=== PATIENT | female | born 1945 | race Caucasian/White ===

== ENCOUNTER → 2021-04-22 | Outpatient (CLI) | payer BC, MEDICARE | LOC: M.MRI 13:17 | PROVIDERS: ATTEND Orthopaedic Surgery | DX: Z01.818 Encounter for other preprocedural examination (principal); S83.522A Sprain of posterior cruciate ligament of left knee, initial encounter; S83.512A Sprain of anterior cruciate ligament of left knee, initial encounter; M17.12 Unilateral primary osteoarthritis, left knee; M25.462 Effusion, left knee; X58.XXXA Exposure to other specified factors, initial encounter; Y93.89 Activity, other specified; Y92.89 Other specified places as the place of occurrence of the external cause; Y99.8 Other external cause status ==

== ENCOUNTER → 2021-05-07 | Outpatient (CLI) | payer BC, MEDICARE ==
[~2021-05-07] MED LIST: CELEBREX 200 M200 M1 PO; CRESTOR40 MG PO; DITROPAN XL10 M1 PO; HYDROCHLOROTHIA25 M1 PO; LOVENOX40 MG/0.4 SUBQ; MULTI VITAMIN1 EACH PO; PRINIVIL40 MG PO; VITAMIN B-1100 M2 PO; VITAMIN D350 MC3 PO; ZETIA10 MG PO
[2021-05-07 09:05] LABS: ABSOLUTE BASOPHILS 0.1 thou/uL (0.0-0.2); ABSOLUTE EOSINOPHILS 0.2 thou/uL (0.0-0.7); ABSOLUTE LYMPHOCYTES 2.6 thou/uL (0.8-5.3); ABSOLUTE MONOCYTES 0.6 thou/uL (0.0-1.2); ABSOLUTE NEUTROPHILS 4.2 thou/uL (1.6-8.1); BASOPHILS 0.7 %; EOSINOPHILS 3.1 %; HEMATOCRIT 41.4 % (37.0-47.0); HEMOGLOBIN 14.1 gm/dL (12.0-15.0); LYMPHOCYTES 34.4 %; MCH 33.1 pg (26.0-34.0); MCHC 34.1 g/dL (28.0-37.0); MCV 97.2 fL (80.0-100.0); MONOCYTES 7.3 %; MPV 8.2 fl. (7.2-11.1); NUCLEATED RBCS 0 /100WBC; PLATELET COUNT* 233 thou/uL (150-400); POLYS 54.5 %; RBC 4.26 mil/uL (4.20-5.00); RDW-CV 12.6 % (10.5-14.5); WBC 7.7 thou/uL (4.0-11.0)
[2021-05-07 09:16] LABS: PROTIME 10.4 Seconds (9.20-11.50)
[2021-05-07 09:17] LABS: CALCIUM 9.3 mg/dL (8.5-10.1); TOTAL BILIRUBIN 0.6 mg/dL (<0.1-1.0); TOTAL PROTEIN 7.6 g/dL (6.4-8.2)
[2021-05-07 10:07] LABS: URINE BILIRUBIN NEGATIVE (Negative); URINE BLOOD NEGATIVE (Negative); URINE CLARITY CLEAR; URINE COLOR YELLOW; URINE GLUCOSE-RANDOM NEGATIVE (Negative); URINE KETONES NEGATIVE (Negative); URINE LEUKOCYTES-REFLEX TRACE (Negative); URINE NITRITE-REFLEX NEGATIVE (Negative); URINE PROTEIN NEGATIVE (Negative); URINE SPECIFIC GRAVITY 1.025 (1.005-1.030); URINE UROBILINOGEN 0.2 E.U./dl (0.2-1.0)
[2021-05-07 10:29] LABS: SQUAMOUS 0-3 Few /LPF (0-3)
[2021-05-07 10:30] LABS: CASTS None Seen /LPF (None Seen); URINE RBC 0-2 Rare /HPF (0-2); URINE WBC-REFLEX 0-5 Rare /HPF (0-5)
[2021-05-07 10:31] LABS: BACTERIA-REFLEX 1-9 Few /HPF (None Seen); CRYSTALS None Seen /LPF (None Seen)
--- NOTE | 2021-05-07 14:23 | EKG ---
[place] [address] ELECTROCARDIOGRAM REPORT Name: ALEIDA SANCHEZ Room: [facility]#: [id number] Admission: 05/07/21 Attend Phys: Varinder Cameron, Discharge: Date of : 49 Date of Service: 05/07/21 0949 Report #: [id number] THIS REPORT FOR: //name// [facility] Test Date: 2021-05-07 Test Time: 09:49:28 Pat Name: ALEIDA SANCHEZ Department: Room: Gender: [employer] Machine Operator: EVAN VILLAFUERTE : 1945 Requested By: Varinder Cameron Order Number: [id number] MD: Ariel Clark Measurements Intervals [place] Rate: 74 P: 42 CT: 141 QRS: 14 QRSD: 94 T: 16 QT: 411 QTc: 456 Interpretive Statements Sinus rhythm Ventricular premature complex Baseline wander in lead(s) I,II,III,aVR,aVF No previous ECG available for comparison Electronically Signed On 05-07-2021 14:23:16 MANUFACTURING MAINTENANCE TECHNICIAN by Ariel Clark [email or web address] <ELECTRONICALLY SIGNED> By: Ariel Clark MD, [facility] 05/07/21 1423 0949 0949 Ariel Clark MD, [facility] /EPI
== END ==
LOC: M.LAB 06:21
PROVIDERS: ATTEND Orthopaedic Surgery
DX: Z01.818 Encounter for other preprocedural examination (principal); I49.3 Ventricular premature depolarization; M17.12 Unilateral primary osteoarthritis, left knee

== ENCOUNTER 2021-05-13 06:33 | Inpatient (IN) | payer BC, MEDICARE ==
--- NOTE | 2021-05-09 10:24 | NUR ---
INSTRUCTED ON ENHANCED RECOVERY PROGRAM WHEN CAME TO PAC CLASS. INSTRUCTED THAT SHE MAY HAVE CLEAR LIQUIDS UNTIL 6 AM CONSISTING OF COFFEE OR TEA WITHOUT CREAMER, BROTH WITHOUT NOODLES, JELLO, POPSICLES, CLEAR JUICE SUCH APPLE, CRANBERRY OR GRAPE. INSTRUCTED ON WAY TO HOSPITAL DRINK SUGAR FREE GATORADE AND NO MORE CLEAR LIQUIDS. VERBALIZED UNDERSTANDING OF ALL. SUGAR FREE GATORADE PROVIDED.
[~2021-05-13] VITALS: Ht 165.1 cm; Wt 83.5 kg
[2021-05-13 08:02] VITALS: BP 103/72
[2021-05-13 16:29] VITALS: BP 119/70
[2021-05-13 20:00] VITALS: BP 107/56
[2021-05-14 01:16] VITALS: BP 88/54
[2021-05-14 05:13] LABS: HEMATOCRIT 33.5 % (37.0-47.0); HEMOGLOBIN 10.8 gm/dL (12.0-15.0)
--- NOTE | 2021-05-14 05:37 | NUR ---
ASSUMED CARE OF PT AFTER REPORT AT 1930. PT A&OX4. VSS. PHYSICAL ASSESSMENT COMPLETED AND CHARTED. PT ON O2 AT 4L NC. PT ON MEDSURG STATUS. PT UP WITH 1-2 ASSIST TO BSC. PT COMPLAINED OF LEFT KNEE PAIN-MED GIVEN PER MAR. PT ABLE TO SLEEP WELL ON BED. CALL LIGHT WITHIN REACH.
[2021-05-14 06:16] VITALS: BP 92/57
--- NOTE | 2021-05-14 06:57 | NUR ---
NO OT AT THIS TIME, WILL DEFER TO PT.
[2021-05-14 08:00] VITALS: BP 108/69
[2021-05-14 09:25] VITALS: BP 102/57
[2021-05-14 15:51] VITALS: BP 102/50
--- NOTE | 2021-05-14 16:05 | NUR ---
CM FOLLOWUP PT NOT MEDICALLY CLEAR. PT WILL REQUIRE REFERRAL TO UPON DC. PT PENDING OT/PT EVALS BEFORE MEDICAL CLEARANCE. CM TO FOLLOWUP.
--- NOTE | 2021-05-14 17:11 | NUR ---
CM ASSESSMENT ASSESSMENT COMPLETED WITH PT. PT ALERT AND ORIENTED. PT REPORTS LIVING IN HOME WITH STEPS TO BASEMENT, BUT THAT SHE STAYS ON THE MAIN FLOOR. PT REPORTS HER SON IS TEMPORARILY LIVING WITH HER. PT REPORTS ONCE DC SHE WILL STAY IN HER HOME FOR 3 WEEKS AND THEN STAY WITH HER DAUGHTER IN [place], [place]. PT REPORTS THAT WHEN SHE IS IN HER HOME, HER GRANDAUGTER WILL VISIT DAILY TO ASSIT WITH GROOMING NEEDS. PRIOR TO HOSPITALIZATION PT WAS INDEPENDENT WITH ADLS AND USED NO DME. PT HAS NO SKILLED OR REHAB HX. PT TO BE DC HOME WITH HH SERVICES ONCE MED CLEARED.
--- NOTE | 2021-05-14 20:01 | NUR ---
POST OP DAY 1. A&OX 4, PWD. LUMGS DIMINISHED IN BASES, HEART TONES REG. +BS X 4 QUADS. PEDAL PULSES PRESENT TRACE ANKLE EDEMA LUIS DANIEL. LEFT KNEE WITH MEPILEX DRESSING THAT IS DRY AND INTACT. HEMOVAC PULLED TODAY AND PRESSURE DRESSING PUT ON LEFT THIGH DRAIN SITE. THIGH HIGH SVEN HOSE ON LUIS DANIEL LEGS. LAST BM 2 DAYS AGO. WAS IN CPM FROM [facility]. [phone]. PAIN MEDS GIVEN APPROX. Q 4 HOURS. IV RIGHT HAND WITH 1/2NS AT 75MLS/HR. POLAR PACK ON LEFT KNEE. PT GOT UP WITH PT AND SAT IN CHAIR. PT GETTING UP TO USE BSC WITH ASSIST OF 1 AND TOLERATING IT WELL. NO OTHER C/O. WILL CONTINUE TO MONITOR.
[2021-05-14 21:00] VITALS: BP 134/72
[2021-05-15 04:07] LABS: HEMATOCRIT 31.9 % (37.0-47.0); HEMOGLOBIN 11.1 gm/dL (12.0-15.0)
--- NOTE | 2021-05-15 05:36 | NUR ---
SLEPT MUCH OF THE NIGHT. VOIDED PER BSC. IVF INFUSING TO RT HAND. POLAR PACK IN USE. DRESSING C/D/I TO LT KNEE. USED CPM AT THE BEGINNING OF THE SHIFT. MEDICATED FOR PAIN, SEE MAR. TOOK BENADRYL AT BEGINNING OF SHIFT FOR C/O ITCHING WITH RELIEF. MOVES IN BED WELL. UP WITH SBA, GAIT BELT, AND WALKER. HOURLY ROUNDS CONTINUE. CALL LITE IN REACH.
[2021-05-15 11:59] VITALS: BP 134/72
[2021-05-15 15:54] VITALS: BP 123/66
--- NOTE | 2021-05-15 17:31 | NUR ---
CM FOLLOWUP PT EXPECTED TO DC HOME WITH HH [facility] ([phone]) ON 05/16/21.
[2021-05-15 20:40] VITALS: BP 140/71
[2021-05-16] VITALS: BP 119/62
[2021-05-16 04:00] VITALS: BP 108/63
--- NOTE | 2021-05-16 07:48 | NUR ---
Alert and oriented x 4. L knee dresing is dry and intact, with polarcare in place. She is up with assist x 1 to the bedside commode. Her IV was infiltrated so it was removed. She didn't want to be stuck again so I did leave it out. She refused to do the CPM. Meryhad pain meds x 3. Melissas slept well.
[2021-05-16 08:00] VITALS: BP 112/53
[2021-05-16] MEDS ORDERED: HYDROCODON-ACE1 EAC7 PO (12:13)
[2021-05-16] MEDS ORDERED: XARELTO10 MG PO (12:13)
[2021-05-16 12:25] VITALS: BP 134/72
[2021-05-16 16:18] VITALS: BP 134/72
--- NOTE | 2021-05-16 16:19 | NUR ---
1436: PATIENT DISCHARGED AT THIS TIME VIA WHEELCHAIR ACCOMPANIED BY SPOUSE AND STAFF TO PRIVATE VEHICLE. DISCHARGE INSTRUCTIONS REVIEWED, SPOUSE ACKNOWLEDGED UNDERSTANDING. ALL QUESTIONS AND CONCERNS ADDRESSED.
--- NOTE | 2021-05-16 17:55 | NUR ---
CM FOLLOWUP PT DC'D HOME WITH HH SERVICES PROVIDED BY [facility] [phone].
--- NOTE | 2021-05-20 10:46 | OP ---
[address] [address] OPERATIVE REPORT Name: ALEIDA SANCHEZ Room: [address] IN M.R.#: [id number] Admission: 05/15/21 Attend Phys: Maurice Garcia Discharge: 05/16/21 Date of : 49 Report #: [id number] THIS REPORT FOR: cc: Elaina Enciso Anna S. DO Greiner, Robert F. II DO ~ DATE OF SURGERY: 05/13/2021 PREOPERATIVE DIAGNOSIS: Left knee osteoarthritis. POSTOPERATIVE DIAGNOSIS: Left knee osteoarthritis. PROCEDURE: Left total knee arthroplasty. SURGEON: Varinder Cameron II, DO. CLIENT EVALUATOR: CAMERON Najera. ANESTHESIA: Per operative record. ESTIMATED BLOOD LOSS: 50 mL. ANTIBIOTICS: Per operative record. DRAINS: Medium Hemovac. COMPLICATIONS: None. CONDITION: The patient stable to recovery room. OPERATIVE PROCEDURE: The patient was taken to the operative suite, placed supine on the operating table, given appropriate anesthesia. The patient had a well-padded tourniquet applied to the upper thigh, which was inflated to 300 mmHg after gravity exsanguination. The operative knee was sterilely prepped and draped. Surgery began by midline incision that was carried down to subcutaneous tissues. A medial parapatellar arthrotomy was performed, carried down to bone. Patella was then everted and excess soft tissue was removed from the femur. Femoral cutting block was then applied, checked with a drop rotational alignment, pinned in appropriate position and appropriate cuts were made. A 4-in-1 cutting block was then applied, checked for rotational alignment, pinned in appropriate position and appropriate cuts were made. The tibia was then exposed. Excess meniscus was removed. Retractor was placed on collateral ligaments. The tibial cutting block was then applied, pinned in appropriate position, checked with drop rotational alignment and slope and appropriate cut was made. Tibial bone was removed. Tibial baseplate was then applied, checked for rotational alignment with drop rosa and [place] [address] OPERATIVE REPORT Name: ALEIDA SANCHEZ Room: [address] M.R.#: [id number] Admission: 05/15/21 Attend Phys: Maurice Garcia Discharge: 05/16/21 Date of : 49 Report #: [id number] Femur was then applied and box cut was reamed. This was then trialed with appropriate spacer, which showed excellent fit and fill and excellent stability of the knee through all range of motion. The patella was reamed in appropriate fashion, sized to appropriate size. Three peg holes were drilled and it was then trialled and shown to have excellent flexion, extension, excellent tracking patella within the groove. These trials were then removed. Tibia was punched in appropriate fashion. Bone ends were cleansed with Pulsavac irrigation and cement was mixed, applied to final implants. These were then malleted into position, held the knee in extension and compressed to allow cement to cure. After it cured, excess was removed utilizing [place] and osteotome. Wound was then copiously irrigated and the final spacer was then malleted into position. The tourniquet was deflated. Hemostasis was maintained with electrocautery. Pain cocktail was injected. The capsule was closed with #2 FiberWire and 1 Vicryl in [id number] fashion. Skin was closed with 2-0 Vicryl in running 3-0 Monocryl. Dermabond dressing applied. Sean wrap and PolarCare applied. The patient transported to recovery room in stable condition. Counts were correct throughout the procedure. <ELECTRONICALLY SIGNED> By: Varinder Cameron II, DO 05/20/21 1046 [id number] [id number] Cameron II, DO /nt
== END 2021-05-16 14:36 | disposition home health service (06) | DRG 470 ==
LOC: M.ORTHSURG 06:33 → M.TBA 07:11 → M.2W 07:11 → M.TBA 07:11 → M.ORTHSURG 10:41 → M.2W 16:02 → M.3W 05-14 09:26
PROVIDERS: Orthopaedic Surgery; ADMIT Internal Medicine; ATTEND Internal Medicine
PROC: 0SRD0J9 Replacement of Left Knee Joint with Synthetic Substitute, Cemented, Open Approach (ICD-10-PCS; principal; 2021-05-13)
DX: M17.12 Unilateral primary osteoarthritis, left knee (principal); Z96.641 Presence of right artificial hip joint; E66.9 Obesity, unspecified; E78.5 Hyperlipidemia, unspecified; I10 Essential (primary) hypertension; D64.9 Anemia, unspecified; R09.02 Hypoxemia; Z20.822 Contact with and (suspected) exposure to COVID-19; Z90.710 Acquired absence of both cervix and uterus; Z87.891 Personal history of nicotine dependence; Z82.49 Family history of ischemic heart disease and other diseases of the circulatory system; Z68.30 Body mass index [BMI] 30.0-30.9, adult; Z28.21 Immunization not carried out because of patient refusal